=== PATIENT | female | born 1980 | race Caucasian/White ===

== ENCOUNTER 2016-09-22 01:36 | Emergency (ER) | payer OTHER ==
[2016-09-22 01:42] VITALS: RESP 16; TEMP 98.2
--- NOTE | 2016-09-22 01:46 | EDPHY ---
H & P Stated Complaint: UTI, lower abd pain x1 week HPI/ROS: HPI CHIEF COMPLAINT: Suprapubic pain, dysuria, urinary frequency and urgency HISTORY OF PRESENT ILLNESS: This patient very pleasant 35-year-old female no significant medical history she presents emergency room with suprapubic pain dysuria urinary frequency and urgency this all started approximately a week ago. The symptoms have progressed. She has not had any fever denies vomiting denies back pain. She states every time she urinates she has dysuria with a burning sensation that is what caused her come to the emergency room this evening. Past Medical History: No significant medical history except for gastritis, previous history of urinary tract infection Past Surgical History: Appendectomy Social History: Denies daily use of drugs alcohol tobacco products. Family History: Noncontributory ROS REVIEW OF SYSTEMS: A comprehensive 10 point review of systems is otherwise negative aside from elements mentioned in the history of present illness. Exam Constitutional triage nursing summary reviewed, vital signs reviewed, awake/ alert. Eyes normal conjunctivae and sclera, EOMI, PERRLA. HENT normal inspection, atraumatic, moist mucus membranes, no epistaxis, neck supple/ no meningismus, no raccoon eyes. Respiratory clear to auscultation bilaterally, normal breath sounds, no respiratory distress, no wheezing. Cardiovascular rate normal, regular rhythm, no murmur, no edema, distal pulses normal. Gastrointestinal soft, mild tenderness palpation suprapubic,, no rebound, no guarding, normal bowel sounds, no distension, no pulsatile mass. Genitourinary no CVA tenderness. Musculoskeletal no midline vertebral tenderness, full range of motion, no calf swelling, no tenderness of extremities, no meningismus, good pulses, neurovascularly intact. Skin pink, warm, & dry, no rash, skin atraumatic. Neurologic awake, alert and oriented x 3, AAOx3, moves all 4 extremities equally, motor intact, sensory intact, CN II-XII intact, normal cerebellar, normal vision, normal speech. Psychiatric normal mood/affect. Heme/Lymph/Immune no lymphadenopathy. Differential Diagnosis: Includes but is not limited to in a particular order, cystitis, urinary tract infection, pyelonephritis. Medical Decision Making: Plan for this patient p.o. Caspar, peridium, most likely Keflex after urinalysis results. Here in emergency room she appears well nontoxic no CVA tenderness no fever appears well. Will treat for urinary tract infection. Waiting urinalysis results. Re-evaluation: Source: Patient - Personal History LMP (Females 10-55): 1-7 Days Ago Current Tetanus/Diphtheria Vaccine: Yes Current Tetanus Diphtheria and Acellular Pertussis (TDAP): Yes Tetanus Vaccine Date: <10 years - Medical/Surgical History Hx Asthma: No Hx Chronic Respiratory Disease: No Hx Diabetes: No Hx Cardiac Disease: No Hx Renal Disease: No Hx Cirrhosis: No Hx Alcoholism: No Hx HIV/AIDS: No Hx Splenectomy or Spleen Trauma: No Other PMH: appy,. panic attacks. chronic UTIs - Social History Smoking Status: Never smoked Constitutional: Initial Vital Signs Temperature (C) 36.8 C 09/22/16 01:38 Heart Rate 86 09/22/16 01:38 Respiratory Rate 16 09/22/16 01:38 Blood Pressure 97/69 L 09/22/16 01:38 O2 Sat (%) 99 09/22/16 01:38 O2 Delivery Mode Room Air Allergies/Adverse Reactions: Penicillins Allergy (Verified 09/22/16 01:41) Home Medications: Medication Instructions Recorded Cephalexin [Keflex] 500 mg PO Q6H #28 cap 09/22/16 Hydrocodone/APAP 5/325 [Caspar 1 - 2 tab PO Q4H PRN #10 tab 09/22/16 5/325] Phenazopyridine HCl [Pyridium] 200 mg PO TID #15 tab 09/22/16 Seroquel 09/22/16 Xanax 09/22/16 Medical Decision Making - Data Points Laboratory Results: 09/22/16 01:45 Urine Color Pending Urine Appearance Pending Urine pH Pending Ur Specific [place] Pending Urine Protein Pending Urine Ketones Pending Urine Blood Pending Urine Nitrate Pending Urine Bilirubin Pending Urine Urobilinogen Pending Ur Leukocyte Esterase Pending Urine Glucose Pending Departure - Departure Disposition: Home, Routine, Self-Care Clinical Impression: Urinary tract infection Qualifiers: Urinary tract infection type: acute cystitis Hematuria presence: with hematuria Qualified Code(s): N30.01 - Acute cystitis with hematuria Condition: Good Instructions: Urinary Tract Infection in Women (ED) Additional Instructions: 1. Return emergency room if you have worsening abdominal pain, fever, back pain vomiting. Referrals: LILY DIAZ [Other] - As per Instructions Prescriptions: Cephalexin [Keflex] 500 mg PO Q6H #28 cap Hydrocodone/APAP 5/325 [Caspar 5/325] 1 - 2 tab PO Q4H PRN #10 tab PRN Reason: Pain, Moderate Phenazopyridine HCl [Pyridium] 200 mg PO TID #15 tab
[2016-09-22] MEDS ORDERED: HYDROCODONE/APAP 5/325 TAB ONE (01:51)
[2016-09-22] MEDS ORDERED: PHENAZOPYRIDINE HCL 200 MG TAB PO ONE (01:53)
[2016-09-22] MEDS ORDERED: HYDROCOD/APAP 5/325 PREPACK#6 BTL TAKEHOME ONE (01:53)
[2016-09-22] MEDS ORDERED: HYDROCODONE/APAP 5/325 TAB PO ONE (01:53)
[2016-09-22 02:11] LABS: COLOR AMBER; LEUKOCYTE ESTERASE,URINE 3+ (NEGATIVE); NITRITE,URINE NEGATIVE (NEGATIVE)
[2016-09-22] MEDS ORDERED: CEPHALEXIN 500MG PREPACK#4 BTL TAKEHOME ONE (02:13)
[2016-09-22] MEDS ORDERED: CEPHALEXIN 500 MG CAP PO ONE (02:13)
[2016-09-22 02:16] LABS: BACTERIA 1+ /hpf (NONE SEEN); RBC,URINE 50-182 /hpf (0-3); WBC,URINE 50-182 /hpf (0-3)
[2016-09-22 02:47] VITALS: BP 102/67; PULSE 74; O2SAT 97
== END 2016-09-22 02:47 | disposition home or self-care (01) ==
DX: N30.01 Acute cystitis with hematuria (principal); B96.20 Unspecified Escherichia coli [E. coli] as the cause of diseases classified elsewhere

== ENCOUNTER 2017-03-09 08:30 | Emergency (ER) | payer MEDICAID, OTHER ==
[2017-03-09 08:36] VITALS: BP 108/79; PULSE 90; RESP 17; TEMP 97.9; O2SAT 100
--- NOTE | 2017-03-09 09:06 | EDPHY ---
H & P Time Seen by Provider: 03/09/17 08:44 HPI/ROS: HPI Rash. 36-year-old female by private vehicle. She complains of an itchy papular like rash on her hands and involving her upper inner lip. She reports that this started yesterday. She denies any ill contacts. She has had no sensation of swelling in her throat, wheezing, difficulty breathing, voice changes, difficulty swallowing. No lightheadedness. No fever. No other associated signs or symptoms. She denies ill contacts. ROS: Constitutional: No fever, no chills. No weakness. Eyes: No discharge. No changes in vision. ENT: No sore throat. No nasal congestion or rhinorrhea. Respiratory: No cough. No shortness of breath. Cardiac: No chest pain, no palpitations. Gastrointestinal: No abdominal pain, no vomiting, no diarrhea. Genitourinary: No hematuria. No dysuria or increased frequency with urination. Musculoskeletal: No back pain. No neck pain. No myalgias or arthralgias. Skin: As above. Neurological: No headache. No focal weakness or altered sensation. Past medical history: Appendectomy, panic attacks, chronic UTIs. Social history: Has a son at home. He is asymptomatic. Here by herself. Nonsmoker. No alcohol. Physical Exam: General Appearance: Alert, no distress. This patient is responding to questions appropriately and in full sentences. This patient appears well- hydrated and well-nourished. Eyes: Pupils equal and round no pallor or injection. No lid edema, erythema or injection. ENT, Mouth: Mucous membranes are moist. The pharyngeal tissues are unremarkable. No edema or swelling. No asymmetry suggestive of abscess. No erythema or exudates. No stridor on auscultation of her neck. She does have a oral aphthous like/vesicular lesion mid upper inner lip mucosa. The tongue, oral mucosa and pharynx are unremarkable. Respiratory: There are no retractions, lungs are clear to auscultation with good air movement bilaterally. Cardiovascular: Regular rate and rhythm. No murmur. Neurological: Motor sensory function is grossly intact. Cranial nerves are normal. Gait is normal. Skin: Warm and dry, she has a diffuse papular rash involving the dorsal aspect and palmar aspects of both hands. This looks like Coxsackie virus or molluscum contagiosum. Musculoskeletal: Neck is supple and nontender. No pain on flexion of her neck. Extremities are symmetrical. All joints range without pain or impingement. Psychiatric: No agitation. No depression. Database: EKG: Imaging: Procedures: Emergency department course: Vital signs reviewed and are normal. This patient's presentation is consistent with hand foot and mouth disease or molluscum contagiosum possibly. I explained to her however that this is extremely rare in adults. This does not appear to be an allergic-type reaction. I also feel herpetic etiology is unlikely. There are no airway issues. No signs of edema or anaphylaxis. Plan will be to treat her with antihistamines for pruritus for the next 2-3 days. I will have her follow up with her primary care physician for re- evaluation at that time. She feels comfortable with this plan. I also discussed the possibility of herpetic etiology but I feel this is less likely than another viral source. Return to emergency department precautions were discussed with her. All of her questions were answered. She was discharged in good condition. Differential Diagnosis: The differential diagnosis on this patient includes but is not limited to viral rash, molluscum contagiosum, [id number] disease. Anaphylaxis, herpes labialis unlikely. This represents a partial list of diagnoses considered. These considerations are based on history, physical exam, past history, reassessment and diagnostic testing. Smoking Status: Never smoked Constitutional: Initial Vital Signs Temperature (C) 36.6 C 03/09/17 08:33 Heart Rate 90 03/09/17 08:33 Respiratory Rate 17 03/09/17 08:33 Blood Pressure 108/79 03/09/17 08:33 O2 Sat (%) 100 03/09/17 08:33 O2 Delivery Mode Room Air Allergies/Adverse Reactions: Penicillins Allergy (Verified 09/22/16 01:41) Home Medications: Medication Instructions Recorded Seroquel 09/22/16 Xanax 09/22/16 Adderall 10 MG (*) 03/09/17 Departure - Departure Disposition: Home, Routine, Self-Care Clinical Impression: Rash, Hand, foot and mouth disease Condition: Good Instructions: Acute Rash (ED), Hand, Foot, and Mouth Disease (ED) Additional Instructions: Read and follow provided instructions. Follow-up with your primary care physician in 2-3 days for re-evaluation. Take medication as prescribed. Move Benadryl, 50 mg can be taken every 6-8 hours as needed for itching. This medication will dry her mouth out and make you drowsy. You should not drive while taking this medication. Return to the emergency department for worsening symptoms, fever, significant spreading of your rash, swelling in her throat, wheezing or difficulty breathing or other serious concerns. Referrals: Patient,NotPresent [Primary Care Provider] - As per Instructions Stand Alone Forms: Work Excuse
== END 2017-03-09 09:15 | disposition home or self-care (01) ==
DX: B08.4 Enteroviral vesicular stomatitis with exanthem (principal)